=== PATIENT | female | born 1960 | race Two or more races ===

== ENCOUNTER 2018-08-19 10:37 | Day surgery (SDC) | payer OTHER ==
[2018-08-18 10:35] VITALS: BMI 29.2
[2018-08-19] MEDS ORDERED: ONDANSETRON 4 MG/2 ML VIAL IVPUSH PRN (12:11)
[2018-08-19] MEDS ORDERED: LACTATED RINGERS SOLUTION 1,000 ML IV SCH (12:15)
[2018-08-19] MEDS ORDERED: ceFAZolin SODIUM 1 GM VIAL ONE (12:56)
[2018-08-19] MEDS ORDERED: MIDAZOLAM HCL 2 MG/2 ML SINGLE DOSE VIAL ONE (13:08)
[2018-08-19] MEDS ORDERED: INDOCYANINE GREEN 25 MG/10 ML VIAL IVPUSH ONE ×2 (13:46→14:20)
[2018-08-19] MEDS ORDERED: CEFAZOLIN 2 GM in DEXTROSE 5%-WATER - 100 ML IVPB ONE (13:49)
--- NOTE | 2018-08-19 13:49 | HP ---
History & Physical Update - History History: No Change - Physical Physical: No Change - Assessment Assessment: No Change - Plan Plan: No Change (Here today for elective robotic hysterectomy/salpingectomy. Initial H&P is located in her paper chart. No new complaints or medications.)
[2018-08-19] MEDS ORDERED: ceFAZolin SODIUM 1 GM VIAL IVPB ONE (14:08)
[2018-08-19] MEDS ORDERED: NEOSTIGMINE METHYLSULFATE 0.5 MG/ML - 10 ML MDV ONE (14:55)
[2018-08-19] MEDS ORDERED: PROPOFOL 20 ML ONE (16:06)
[2018-08-19] MEDS ORDERED: KETOROLAC TROMETHAMINE 30 MG/1 ML VIAL ONE (16:09)
--- NOTE | 2018-08-19 16:38 | OP ---
Operative Note - Note: Operative Date: 08/19/18 Pre-Operative Diagnosis: Uterine cancer Operation: Robotic asssisted [facility] Post-Operative Diagnosis: Same as Pre-op Surgeon: Jackie Cagle Manager Transfer: Santana Viera Anesthesiologist/[employer] FOOTBALLER: Daniel Peace Anesthesia: General Specimens Removed: uterus, tubes, ovaries, omentum, paraortic/obturator/iliac lymph nodes Estimated Blood Loss (mls): 30 Drains, Volume Out (mls): 250 (vega-clear) Fluid Volume Replaced (mls): 1,000
--- NOTE | 2018-08-19 16:43 | SURG ---
Surgery Site Leader Note Site Leader: Santana Viera PA-C Date of Service: 08/19/18 Diagnosis: Uterine cancer Procedure: robotic assisted LEONARDO BSO with staging I was present for the entirety of the operative procedure. For further detail, please refer to operative report. Visit type - Case Type Case Type: Scheduled - New patient This patient is new to me today: Yes Date on this admission: 08/19/18
[2018-08-19] MEDS ORDERED: morphine SULFATE 4 MG/ML VIAL IVPUSH PRN (16:47)
[2018-08-19] MEDS ORDERED: oxyCODONE HCL 5 MG TABLET PO PRN (16:48)
[2018-08-19] MEDS ORDERED: CEFAZOLIN 2 GM/D5W 2 GM/50 ML ML IVPB SCH (18:00)
--- NOTE | 2018-08-19 19:18 | OP ---
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 PROCEDURE: Robotic assisted total hysterectomy, bilateral salpingooophorectomy, bilateral pelvic sentinel and full lymph node dissection, bilateral paraaortic lymph node dissection, and omentectomy. SURGEON: Jackie Cagle M.D. SAS ETL DEVELOPER: Chrissy Gray ANESTHESIA: General endotracheal anesthesia. ESTIMATED BLOOD LOSS: 50 mL. COMPLICATIONS: None. INDICATION: This is a 58-year-old with a history of post menopausal vaginal bleeding. While she was traveling from [facility] to [place], she had an endometrial biopsy which showed carcinosarcoma on June 20, 2018. MSI testing showed intact expression. She had a pelvic ultrasound which showed uterus to be 4.6 x 3.57 cm with an echogenic space occupying lesion within endometrial cavity. She had been counseled regarding surgical management. Risks, benefits, indications, and alternatives were discussed with the patient. All questions were answered. Informed consent was signed. FINDINGS: Cervix and lesions, vagina and lesions, intraabdominal findings. Uterus approximately 6 weeks size. Bilateral tubes and ovaries normal. The left sentinel lymph node was on the internal iliac artery, and the right sentinel lymph node was on the external iliac artery. The left sentinel iliac lymph node was enlarged. There was no other lymphadenopathy. The omentum appeared normal. There was no ascites. There was no intraabdominal evidence of disease. A vast paraaortic lymph node was also identified and removed with Firefly. DESCRIPTION OF PROCEDURE: The patient was taken to the operating room, placed in dorsal supine position. General endotracheal anesthesia was obtained without difficulty. She was placed in the dorsal lithotomy position in Everardo stirrups and prepped and draped in normal, sterile fashion. A Brown catheter was placed in the bladder. Speculum was placed in the vagina. Cervix was grasped with single-toothed tenaculum and cervix was gently dilated. 4 mL of 1.25 mg per mL ICG dye was injected into the cervix at 3 and 9 o'clock superficially, and uterine manipulator was placed, tenaculum and speculum were then removed. Attention was turned to the patient's abdomen. 5 mL of 0.5% Marcaine with epinephrine was injected into the umbilicus, and an 8-mm incision was made with the scalpel. While tenting the anterior abdominal wall, the Veress needle was inserted intraabdominally. The abdomen was insufflated with CO2 gas. 8 mm trocar was then placed, intraabdominal placement was confirmed by direct visualization with a laparoscope. Additional 8-mm trocars were placed in the left mid quadrant and far left, an additional 8-mm trocar was placed in the very left lateral quadrant, and an 8-mm trocar was placed in the right mid quadrant, and a 5-mm port was placed in the right lower quadrant. All trocars were placed under direct visualization after injecting 0.5% Marcaine with epinephrine. A thorough exam of the abdomen and pelvis was performed. The da Sean robot was then docked without difficulty. Peritoneal washings were taken using normal saline. The left retroperitoneum was opened, the left ureter was identified and noted to be well away from the field of dissection. Left infundibular pelvic ligament was clamped, cauterized, and transected. This was carried to the broad ligament and the round ligament, and the vesicouterine peritoneum anteriorly. The retroperitoneum was opened, and the sentinel lymph node was identified. Using Firefly it was on the left internal iliac artery; this was removed. It was noted to be enlarged. It was stored in the cul-de-sac for later retrieval. The right retroperitoneum was opened. Adhesions from the cecum were removed from the pelvic sidewall. The right ureter was identified. The right infundibular pelvic ligament was clamped, cauterized, and transected. This was carried to the broad ligament and the round ligament, and the vesicouterine peritoneum anteriorly. The right external iliac artery lymph node was identified, sentinel lymph node under Firefly, and the lymph node was handed off the field. Excellent hemostasis was seen. The bladder flap was created anteriorly, dissecting the bladder off the anterior cervix . There were some previous adhesions from section. These had been lysed from the anterior abdominal wall. The bladder flap was created anteriorly, dissecting the bladder off the anterior cervix and upper vagina. The uterine arteries were skeletonized bilaterally. They were clamped, cauterized, and transected. The cardinal ligaments were serially clamped, cauterized, and transected. The uterosacral ligaments were clamped, cauterized, and transected. A fasciotomy incision was made circumferentially around the cervix . Uterus, cervix, ovaries, and tubes were handed off the field in a bag and for permanent section. Left retroperitoneum was opened, and the left genitofemoral nerve was identified and lymph nodes on the lateral and medial surface of the external iliac artery and vein were removed, as well the obturator space was opened, the obturator nerve was identified, and the lymph nodes anterior to this were removed. They were handed off the field in an EndoCatch bag. Excellent hemostasis was seen. The right retroperitoneum was opened. The genitofemoral nerve and ureter identified. The lymph nodes on the lateral and medial surface of the external iliac artery and vein were removed from the distal half circumflex. The obturator space was opened. Lymph nodes anterior to the obturator nerve were removed. They were handed off the field in an EndoCatch bag. Excellent hemostasis was seen. The left retroperitoneum was opened, and the ureter was retracted medially. On the Firefly, a lymph node was able to be seen in the high common low paraaortic area. This was removed and handed off the field as left paraaortic sentinel lymph node. Further dissection of the paraaortic lymph nodes to approximately 3-4 cm above the aortic bifurcation was performed. Excellent hemostasis was seen. These lymph nodes were handed off the field in the EndoCatch bag. The right retroperitoneum was opened cephalad, and the ureter was retracted medially . The lymph nodes overlying the IVC were removed to approximately 3 to 4 cm of the aortic bifurcation . These were handed off the field. Excellent hemostasis was seen . The omentum was now brought into the pelvis, and an infracolic omentectomy was performed using the monopolar electrocautery, taking care to avoid the bowel. This was handed off the field in an EndoCatch bag. Vaginal cuff was closed in a running, continuous fashion using 2-0 V-Loc sutures. Pelvis was thoroughly irrigated with sterile water copiously, and excellent hemostasis was seen. Surgicel was placed in the right paraaortic and right pelvic sidewall for additional assurance. Excellent hemostasis was seen. All instruments were removed from the patient's abdomen. The da Sean robot was undocked. The trocars removed . The skin was closed with 4-0 Monocryl and Dermabond was applied . The vagina was irrigated copiously with sterile water and Betadine solution. Sponge, needle, instrument counts were correct x2. The patient was extubated and transferred in stable condition to the PACU. Agnieszka Snow/[id number]
[2018-08-19] MEDS: CEFAZOLIN 2 GM/D5W 2 GM/50 ML ML IVPB SCH (22:45)
[2018-08-20] MEDS: CEFAZOLIN 2 GM/D5W 2 GM/50 ML ML IVPB SCH (05:54)
[2018-08-20 07:23] LABS: HEMOGLOBIN 9.6 GM/dL (10.7-15.3); MCH 26.6 pg (25.7-33.7); MCHC 32.2 g/dl (32.0-36.0); MEAN CELL VOLUME 82.6 fl (80-96); MEAN PLT VOLUME 8.1 fl (7.5-11.1); PLATELET COUNT 276 K/MM3 (134-434); RBC 3.63 M/mm3 (3.60-5.2); RDW 14.3 % (11.6-15.6); WHITE BLOOD COUNT 9.7 K/mm3 (4.0-10.0)
[2018-08-20 07:39] LABS: ANION GAP 7 MMOL/L (8-16); BLOOD UREA NITROGEN 16 mg/dL (7-18); CALCIUM 8.3 mg/dL (8.5-10.1); CHLORIDE 103 mmol/L (98-107); CO2 30 mmol/L (21-32); CREATININE 1.2 mg/dL (0.55-1.3); GLUCOSE,RANDOM 148 mg/dL (74-106); POTASSIUM 4.5 mmol/L (3.5-5.1); SODIUM 140 mmol/L (136-145)
--- NOTE | 2018-08-20 08:25 | PN ---
Progress Note (short form) - Note Progress Note: POD#1 Pt without any complaints of pain. Slight nausea which has improved overnight, she tolerated clears this am. OOB and ambulating. Brown removed this am/waiting to void. No flatus. She denies any vaginal bleeding. Vital Signs Period Temp Pulse Resp BP Sys/Montes Pulse Ox Last 24 Hr 97.6 F-99.4 F 63-88 11-20 95-149/46-84 98-100 Brown-600ml GEN: A&0x3, NAD CV: RRR Lungs: CTA b/l ABD: soft, non-distended, inc tenderness. Inc c/d/i with dermabond LE: no calf tenderness or swelling noted b/l. CBC, BMP 08/20/18 06:30 08/20/18 06:30 A/P: 58 yo female s/p robotic hysterectomy with partial omentectomy/lymph node dissection Brown removed this am, TOV Advanced diet to regular Discontinue IV fluids after tolerating regular diet Plan for discharge today Resume oral medications DVT ppx with lovenox SQ/oob/ambulate
[2018-08-20] MEDS ORDERED: oxyCODONE HCL 5 MG TABLET PO PRN (08:38)
[2018-08-20] MEDS ORDERED: ACETAMINOPHEN 650 MG/20.3 ML ORAL SOLUTION (CUPS) PO PRN (08:38)
[2018-08-20] MEDS ORDERED: PATIENT'S OWN MEDICATION (NON-FORMULARY) (Amlodipine/Valsartan [Exforge 5-160 Mg Tablet] 1 PO SCH (10:00)
[2018-08-20] MEDS ORDERED: VALSARTAN 160 MG TABLET (UD) PO SCH (10:00)
[2018-08-20] MEDS ORDERED: ENOXAPARIN NA (PORCINE) 40 MG/0.4 ML DISP.SYRIN SQ SCH (10:00)
[2018-08-20] MEDS ORDERED: amLODIPine BESYLATE 5 MG TABLET (FP) PO SCH (10:00)
--- NOTE | 2018-08-20 13:01 | PN ---
Progress Note, Physician History of Present Illness: Pt POD#1 s/p Robotic TLH, BSO, pelvic and periaortic lymph node dissection and omentectomy for uterine cancer. Doing well. Tolerating regular diet, passing flatus, ambulating. No void yet. Some incisional discomfort otherwise no complaints. - Current Medication List Current Medications: Active Medications Acetaminophen (Tylenol Oral Solution -) 650 mg PO Q6H PRN PRN Reason: PAIN LEVEL 1 - 3 Last Admin: 08/20/18 09:40 Dose: 650 mg Amlodipine Besylate (Norvasc -) 5 mg PO DAILY [facility] Last Admin: 08/20/18 09:31 Dose: 5 mg Enoxaparin Sodium (Lovenox -) 40 mg SQ DAILY [facility] Last Admin: 08/20/18 09:31 Dose: 40 mg Lactated Ringer's (Lactated Ringers Solution) 1,000 mls @ 75 mls/hr IV ASDIR [facility] Ondansetron HCl (Zofran Injection) 4 mg IVPUSH Q6H PRN PRN Reason: NAUSEA AND/OR VOMITING Oxycodone HCl (Roxicodone -) 5 mg PO Q6H PRN PRN Reason: PAIN LEVEL 1-5 Oxycodone HCl (Roxicodone -) 10 mg PO Q6H PRN PRN Reason: PAIN LEVEL 6-10 Valsartan (Diovan -) 160 mg PO DAILY [facility] Last Admin: 08/20/18 09:31 Dose: 160 mg - Objective Vital Signs: Vital Signs Temperature 99.1 F 08/20/18 10:00 Pulse Rate 86 08/20/18 10:00 Respiratory Rate 20 08/20/18 10:00 Blood Pressure 106/51 L 08/20/18 10:00 O2 Sat by Pulse Oximetry (%) 100 08/19/18 21:00 Constitutional: Yes: Well Nourished, No Distress, Calm Eyes: Yes: Conjunctiva Clear HENT: Yes: Atraumatic, Normocephalic Neck: Yes: Supple Respiratory: Yes: WNL Gastrointestinal: Yes: WNL, Soft. No: Distention Wound/Incision: Yes: Clean/Dry, Well Approximated Neurological: Yes: Alert, Oriented Psychiatric: Yes: Alert, Oriented Labs: CBC, BMP 08/20/18 06:30 08/20/18 06:30 Problem List - Problems (1) Uterine cancer Code(s): C55 - MALIGNANT NEOPLASM OF UTERUS, PART UNSPECIFIED (2) History of robot-assisted laparoscopic hysterectomy Code(s): Z90.710 - ACQUIRED ABSENCE OF BOTH CERVIX AND UTERUS Assessment/Plan 58 y/o POD#1 s/p Robotic hysterectomy, pelvic and martha-aortic lymph node dissection, omentectomy for uterine cancer. Doing well post op. Regular diet PO pain meds ambulation await void if able to void likely for d/c home this afternoon/evening
[2018-08-20 15:32] VITALS: BP 115/56; PULSE 82; TEMP 98.9
--- NOTE | 2018-08-28 17:18 | PATH ---
Cytology Non-Gynecological Report Patient Name: ABDOULAYE OBANDO [facility]. Rec. #: [id number] /Age/Gender: 1960 (Age: 58) / F Account: [id number] Location: AMBULATORY SURG Taken: 08/19/2018 Received: 08/21/2018 Reported: 08/28/2018 Physicians: Jackie Cagle MD Specimen(s) Received PERITONEAL WASHING Clinical History Uterine carcinosarcoma Final Diagnosis PERITONEAL WASHING FOR CYTOLOGY: SATISFACTORY FOR EVALUATION. NO MALIGNANT CELLS IDENTIFIED. REACTIVE AND DEGENERATIVE MESOTHELIAL CELLS, NUMEROUS NEUTROPHILS AND SCATTERED LYMPHOCYTES PRESENT. Comment: Immunohistochemical stains performed at [place], [place] ([id number]) and interpreted at [facility] show reactive mesothelial cells are positive for calretinin and D2-40. CD68 highlight neutrophils. RACHEL and MOC31 are negative, while Maicol-Ep4 is non-contributory due to high background staining. See concurrent specimen ([id number]). Electronically Signed Michelle Middleton M.D. Gross Description Approximately 30 cc of clear fluid received in tube. One cytofunnel prepared and Pap stained. One cellblock prepared.
--- NOTE | 2018-08-29 11:24 | PATH ---
Surgical Pathology Report Patient Name: ABDOULAYE OBANDO [facility]. Rec. #: [id number] /Age/Gender: 1960 (Age: 58) / F Account: [id number] Location: AMBULATORY SURG Taken: 08/19/2018 Received: 08/20/2018 Reported: 08/29/2018 Physicians: Jackie Cagel MD Specimen(s) Received A: RIGHT EXTERNAL ILIAC SENTINEL LYMPH NODE #1 B: LEFT PELVIC LYMPH NODE C: RIGHT PELVIC LYMPH NODE D: LEFT PERIAORTIC SENTINEL LYMPH NODE E: LEFT PERIAORTIC LYMPH NODE F: RIGHT PERIAORTIC LYMPH NODE G: OMENTUM H: UTERUS, CERVIX, B/L TUBES AND OVARIES I: LEFT INTERNAL ILIAC SENTINEL LYMPH NODE Clinical History Uterine cancer Final Diagnosis A. EXTERNAL ILIAC SENTINEL LYMPH NODE, RIGHT, EXCISION: ONE BENIGN LYMPH NODE WITH ENDOSALPINGIOSIS (0/1). B. PELVIC LYMPH NODE, LEFT, EXCISION: ELEVEN BENIGN LYMPH NODES (0/11). C. PELVIC LYMPH NODE, RIGHT, EXCISION: TWELVE BENIGN LYMPH NODES (0/12). D. PERIAORTIC SENTINEL LYMPH NODE, LEFT, EXCISION: ONE BENIGN LYMPH NODE (0/1). E. PERIAORTIC, LEFT, LYMPH NODE, EXCISION: FOUR BENIGN LYMPH NODES (0/4). F. PERIAORTIC LYMPH NODE, RIGHT, EXCISION: FIVE BENIGN LYMPH NODES (0/5). G. OMENTUM, OMENTECTOMY: BENIGN OMENTAL ADIPOSE TISSUE WITH REACTIVE MESOTHELIAL HYPERPLASIA. H. UTERUS, CERVIX, BILATERAL FALLOPIAN TUBES AND OVARIES, ROBOTIC LAPAROSCOPIC HYSTERECTOMY AND BILATERAL SALPINGO-OOPHORECTOMY: MALIGNANT MIXED MULLERIAN TUMOR (MMMT), HETEROLOGOUS. TUMOR INVOLVES ENDOMETRIUM, SUPERFICIAL MYOMETRIUM, RIGHT UTERINE CORNUA, LOWER UTERINE SEGMENT, AND RIGHT FALLOPIAN TUBE. TUMOR MEASURES 3.0 X 3.0 CM (GROSS MEASUREMENT). TUMOR INVADES 3 MM TO 17 MM THICK MYOMETRIUM (<50% MYOMETRIAL INVASION). LYMPHOVASCULAR INVASION IDENTIFIED. SURGICAL MARGINS ARE NEGATIVE (PARAMETRIA). ACUTE SEROSITIS. INACTIVE ENDOMETRIUM. MYOMETRIUM WITH FOCALLY CALCIFIED LEIOMYOMATA AND ADENOMYOSIS. LEFT OVARY WITH ENDOSALPINGOSIS. UNREMARKABLE CERVIX AND RIGHT OVARY. AJCC PATHOLOGIC STAGE (pTNM): pT3a pN0. SEE SUMMARY BELOW. SEE COMMENT. I. INTERNAL ILIAC SENTINEL LYMPH NODE, LEFT, EXCISION: ONE BENIGN LYMPH NODE (0/1). Comment: Histologic sections show a high grade carcinoma with areas of chondrosarcoma (heterologous component), invading the superficial myometrium (<50%), closely associated with a bulging and focally calcified leiomyoma. Immunohistochemical stains performed at [place], [place] ([id number]) and interpreted at [facility] show the tumor is positive for RACHEL, AE1/3 (patchy), p53 (diffusely), WT-1, BCL2 (patchy), ER (focal), and ME (focal, weak). Rare cells are staining for S100. Overall histomorphology and immunophenotype supports the diagnosis. Focal discontinuation on the serosal aspect noted. See concurrent negative peritoneal washing ([id number]). Case seen interdepartmentally. Findings discussed with Dr. Cagle. Comments Endometrial Carcinoma :Surgical Pathology Cancer Case Summary Based on AJCC 8th edition Procedure _X_ Robotic laparoscopic hysterectomy and bilateral salpingo-oophorectomy Tumor Size Greatest dimension: _3 x 3__ cm (gross measurement) Histologic Type _X__ Carcinosarcoma (malignant mixed Mullerian tumor, heterologous) Myometrial Invasion _X__ Present Depth of invasion (millimeters): _3__ mm Myometrial thickness (millimeters): _17__ mm Percentage of myometrial invasion: _18__% Percentage depth of myometrial invasion _X_ Estimated less than 50% myometrial invasion Uterine Serosa Involvement _X__ Absent Cervical Stromal Involvement _X__ Not identified Other Tissue/Organ Involvement _X__ Right fallopian tube Lymphovascular Invasion _X__ Present Regional Lymph Nodes Pelvic Node Examination Number of Pelvic Nodes with Macrometastasis (greater than 2 mm): _0_ Number of Pelvic Nodes with Micrometastasis (greater than 0.2 mm and up to 2 mm): _0_ Number of Pelvic Nodes with Isolated Tumor Cells (0.2 mm or less): _0_ Total Number of Pelvic Nodes Examined (sentinel and non-sentinel): _25_ Number of Pelvic [place] Nodes Examined: __2__ Laterality of Pelvic Node(s) Examined: _Right and Left__ Para-aortic Node Examination Number of Para-aortic Nodes with Macrometastasis (greater than 2 mm): _0_ Number of Para-aortic Nodes with Micrometastasis (greater than 0.2 mm and up to 2 mm): _0_ Number of Para-aortic Nodes with Isolated Tumor Cells (0.2 mm or less):_0_ Total Number of Para-aortic Nodes Examined (sentinel and non-sentinel): _10__ Number of Para-aortic [place] Nodes Examined: _1__ Laterality of Para-aortic Node(s) Examined: __ Right and Left __ Pathologic Stage Classification (pTNM, AJCC 8th Edition) Primary Tumor (pT) _X_ pT3a: Tumor involves serosa and/or adnexa (direct extension or metastasis) Regional Lymph Nodes Category (pN) _X__ pN0: No regional lymph node metastasis [facility]/08/25/2018 Electronically Signed Michelle Middleton M.D. Gross Description A. Received in formalin labeled "right external iliac sentinel lymph node," is a 1.2 x 0.8 x 0.2 cm lymph node. The specimen is submitted in toto in one cassette B. Received labeled "left pelvic lymph node," is a 5.0 x 4.2 x 1.0 cm aggregate parson-yellow soft tissue. Sectioning reveals multiple parson lymph nodes measuring up to 1.4 cm in greatest dimension. The lymph nodes are entirely submitted in 7 cassettes as follows: 1-3-one bisected lymph node each; 4-7-two whole lymph nodes each. C. Received in formalin labeled "right pelvic lymph node," is a 4.5 x 4.0 x 1.0 cm aggregate of parson-yellow soft tissue. Sectioning reveals multiple parson lymph nodes measuring up to 2.2 cm in greatest dimension. The lymph nodes are submitted in 7 cassettes as follows: 1-2-one bisected lymph node; 3-one bisected lymph node; 4-5-two whole possible lymph nodes each; 6-7-three whole possible lymph nodes each. D. Received in formalin labeled "left periaortic sentinel lymph node," is a 0.9 cm in greatest dimension parson lymph node. The specimen is submitted in toto in one cassette. E. Received in formalin labeled "left periaortic lymph node," is a 3.5 x 2.0 x 0.8 cm aggregate of parson-yellow soft tissue. Sectioning reveals 4 lymph nodes ranging from 0.3-0.8 cm in greatest dimension. The lymph nodes are entirely submitted in 2 cassettes as follows: 1-2-two whole lymph nodes each. F. Received in formalin labeled "right periaortic lymph node," are 5 lymph nodes ranging from 0.7-1.1 centimeter in greatest dimension. The specimens are submitted in toto in 3 cassettes as follows: 1-2-two whole lymph nodes each; 3-one whole lymph node. G. Received in formalin labeled "omentum," is a 10.0 x 7.3 x 1.5 cm portion of yellow, lobulated adipose tissue, consistent with a portion of omentum. No discrete lesions are identified. [employer] sections are submitted in 5 cassettes. H. Received in formalin labeled "uterus, cervix, bilateral fallopian tubes and ovaries," is a 90 g hysterectomy specimen including a uterus, attached cervix and bilateral attached fallopian tubes and ovaries. The specimen measures 8.5 cm from superior to inferior, 4.5 cm from left to right and 3.7 cm from anterior to posterior. The serosa is parson-munoz with focal adhesions and a focal defect in the fundus at the area of the right cornua. There is tumor bulging from the defect. The anterior serosa is inked blue and the posterior serosa is inked green. The endometrial cavity measures 4.0 cm in length and 3.0 cm from cornu to cornu. The anterior endometrium displays a 3.0 x 3.0 cm polypoid mass associated with a 1.8 cm in greatest dimension focally calcified submucosal nodule. The mass appears to invade superficially into the myometrium. The myometrium averages 1.7 cm in thickness. The left fimbriated fallopian tube measures 4.5 cm in length. The outer surface is parson and smooth. Sectioning reveals an unremarkable lumen. The left ovary measures 2.5 x 1.7 x 1.2 cm. The outer surface is parson-yellow and smooth. Sectioning reveals unremarkable ovarian parenchyma. The right fimbriated fallopian tube measures 4 cm in length. The outer surface is parson with adhesions. Sectioning reveals an unremarkable lumen. The right ovary measures 2.3 x 2.0 x 1.0 cm. The outer surface is parson-yellow and smooth. Sectioning reveals parson-yellow, smooth ovarian parenchyma. [employer]er sections are submitted in 31 cassettes as follows: 1-anterior cervix; 2-anterior lower uterine segment; 3-posterior cervix; 4-posterior lower uterine segment; 5-left parametrium; 6-right parametrium; 1-9-ddojabow endomyometrium with mass and submucosal nodule; 9-anterior endomyometrium with mass and submucosal nodule, following decalcification; 29-38-kukunotbmg anterior endomyometrium with mass; 24-62-aiggejvy from defect at right cornua; 88-65-pjegjvkpy endomyometrium sequentially submitted from superior to inferior; 20-left fallopian tube fimbria; 21-22-cross sections of left fallopian tube; 23-25-left ovary; 26-right fallopian tube fimbria; 96-97-uzzvllzv submitted cross sections of right fallopian tube; 29-31-right ovary. I. Received in formalin left internal iliac sentinel node" is a 2.0 x 1.5 x 0.3 cm portion of parson-yellow soft tissue, possibly containing a lymph node. The specimen is submitted in toto in one cassette. 08/20/2018 saudi08/20/2018
== END 2018-08-20 18:39 | disposition home or self-care (01) ==
LOC: JASUSAT 10:37 → JASU-SURG 10:37 → J3W 18:15 → JASUSAT 08-20 18:39
PROVIDERS: ATTEND Obstetrics & Gynecology Gynecologic Oncology
PROC: 0UT7FZZ Resection of Bilateral Fallopian Tubes, Via Natural or Artificial Opening With Percutaneous Endoscopic Assistance (ICD-10-PCS; 2018-08-19)
PROC: 8E0W4CZ Robotic Assisted Procedure of Trunk Region, Percutaneous Endoscopic Approach (ICD-10-PCS; 2018-08-19)
PROC: 0UT9FZZ Resection of Uterus, Via Natural or Artificial Opening With Percutaneous Endoscopic Assistance (ICD-10-PCS; principal; 2018-08-19 13:00)
PROC: 0UT2FZZ Resection of Bilateral Ovaries, Via Natural or Artificial Opening With Percutaneous Endoscopic Assistance (ICD-10-PCS; 2018-08-19 13:00)
DX: C55 Malignant neoplasm of uterus, part unspecified (principal)
CPT/HCPCS: 58571; S2900; 36415; 80048; 85027; 86850; 86900; 86901; 88104; 88305-TC; 94760